=== PATIENT | female | born 1955 | race Caucasian/White ===

== ENCOUNTER 2017-06-29 13:00 | Outpatient (RCR) | payer BC | END 2017-07-25 | disposition home or self-care (01) | LOC: PTY 13:00 | DX: M72.2 Plantar fascial fibromatosis (principal); M67.01 Short Achilles tendon (acquired), right ankle ==

== ENCOUNTER 2017-09-22 08:50 | Outpatient (RCR) | payer BC | END 2017-09-24 | disposition home or self-care (01) | LOC: PTY 08:50 | DX: M72.2 Plantar fascial fibromatosis (principal); M67.01 Short Achilles tendon (acquired), right ankle; M67.02 Short Achilles tendon (acquired), left ankle ==

== ENCOUNTER 2017-09-25 09:00 | Outpatient (RCR) | payer BC | END 2017-10-24 | disposition home or self-care (01) | LOC: PTY 09:00 | DX: M72.2 Plantar fascial fibromatosis (principal); M67.01 Short Achilles tendon (acquired), right ankle; M67.02 Short Achilles tendon (acquired), left ankle | CPT/HCPCS: 97033; 97110; 97140; G0283 ==

== ENCOUNTER 2017-11-10 12:59 | Outpatient (RCR) | payer BC | END 2017-11-24 | disposition home or self-care (01) | LOC: PTY 12:59 | DX: M72.2 Plantar fascial fibromatosis (principal); M67.01 Short Achilles tendon (acquired), right ankle; M67.02 Short Achilles tendon (acquired), left ankle; M76.61 Achilles tendinitis, right leg; M76.70 Peroneal tendinitis, unspecified leg ==

== ENCOUNTER 2017-12-29 14:53 | Outpatient (RCR) | payer BC | END 2018-01-24 | disposition home or self-care (01) | LOC: PTY 14:53 | DX: M72.2 Plantar fascial fibromatosis (principal); M67.01 Short Achilles tendon (acquired), right ankle; M67.02 Short Achilles tendon (acquired), left ankle ==

== ENCOUNTER 2018-01-26 12:56 | Outpatient (RCR) | payer BC | END 2018-02-24 | disposition home or self-care (01) | LOC: PTY 12:56 | DX: M72.2 Plantar fascial fibromatosis (principal); M67.01 Short Achilles tendon (acquired), right ankle; M67.02 Short Achilles tendon (acquired), left ankle; M76.61 Achilles tendinitis, right leg; M76.70 Peroneal tendinitis, unspecified leg ==